=== PATIENT | female | born 1970 | race African-American/Black ===

== ENCOUNTER 2020-07-28 23:52 | Emergency (ER) | payer MEDICAID ==
[~2020-07-28] VITALS: Ht 165.1 cm; Wt 89.1 kg
[2020-07-29] MEDS ORDERED: KETOROLAC 60MG/2ML VIAL IM STA (00:38)
[2020-07-29] MEDS ORDERED: METOCLOPRAMIDE HCL 10MG/2ML VIAL IM STA (00:38)
[2020-07-29 02:04] VITALS: BP 125/76
[2020-07-29 02:08] LABS: CLARITY URINE CLEAR (CLEAR); COLOR URINE YELLOW (YELLOW); KETONES URINE NEGATIVE (NEGATIVE); LEUKOCYTE ESTERASE URINE NEGATIVE (NEGATIVE); NITRITE URINE NEGATIVE (NEGATIVE); OCCULT BLOOD URINE NEGATIVE (NEGATIVE); PH URINE 6.5 (4.5-8.0); PROTEIN URINE NEGATIVE (NEGATIVE); SPECIFIC GRAVITY URINE 1.026 (1.005-1.030)
[2020-07-29] MEDS ORDERED: NAPR-1074 PO (02:27)
[2020-07-29] MEDS ORDERED: ONDA4TAB5 PO (02:27)
== END 2020-07-29 03:25 | disposition home or self-care (01) ==
LOC: ER 23:52
DX: R51.9 Headache, unspecified (principal); Z88.0 Allergy status to penicillin
CPT/HCPCS: 81003; 96372; 99284; J1885; J2765

== ENCOUNTER 2021-01-15 15:08 | Emergency (ER) | payer MEDICAID, OTHER ==
[~2021-01-15] VITALS: Ht 165.1 cm; Wt 102.0 kg
[~2021-01-15 15:08] MED LIST: NAPR-1074 PO; ONDA4TAB5 PO
[2021-01-15 15:17] VITALS: BP 125/88
== END 2021-01-15 17:29 | disposition left against medical advice (07) ==
LOC: ER 15:08
DX: Z53.21 Procedure and treatment not carried out due to patient leaving prior to being seen by health care provider (principal)

== ENCOUNTER 2021-10-25 19:24 | Emergency (ER) | payer OTHER ==
[~2021-10-25] VITALS: Ht 165.1 cm; Wt 109.7 kg
[2021-10-25 19:34] VITALS: BP 125/77
== END 2021-10-25 21:35 | disposition left against medical advice (07) ==
LOC: ER 19:24
DX: Z53.21 Procedure and treatment not carried out due to patient leaving prior to being seen by health care provider (principal)
CPT/HCPCS: 93005

== ENCOUNTER 2023-12-15 22:09 | Emergency (ER) | payer MEDICAID ==
[~2023-12-15] VITALS: Ht 165.1 cm; Wt 91.0 kg
[2023-12-15 22:53] VITALS: O2SAT 100
[2023-12-16] MEDS: LIDOCAINE HCL 1% 20ML VIAL INFIL ONE (02:30)
[2023-12-16] MEDS ORDERED: DOXY100C5 MT (03:28)
[2023-12-16] MEDS: DOXYCYCLINE HYCLATE 100MG CAPSULE PO ONE (03:30)
[2023-12-16 04:38] VITALS: BP 128/82; PULSE 84; RESP 16; TEMP 98
== END 2023-12-16 04:15 | disposition home or self-care (01) ==
LOC: ER 22:09
DX: S91.311A Laceration without foreign body, right foot, initial encounter (principal); J45.909 Unspecified asthma, uncomplicated; Z88.0 Allergy status to penicillin; X58.XXXA Exposure to other specified factors, initial encounter; Y93.01 Activity, walking, marching and hiking; Y92.89 Other specified places as the place of occurrence of the external cause; Y99.8 Other external cause status
CPT/HCPCS: 73630; 12002; 99283; J3490; Z7610 ×3

== ENCOUNTER 2024-10-01 19:03 | Emergency (ER) | payer MEDICAID ==
[~2024-10-01] VITALS: Ht 165.1 cm; Wt 86.0 kg
[~2024-10-01 19:03] MED LIST changes: +BUSP10TA3 MT; +EFEX1 MT; +HYDR-4001 MT; -ONDA4TAB5 PO; +RISP1 MT; +TOPI15CA PO; +TRAZ-252 MT
[2024-10-01 19:05] VITALS: O2SAT 97
[2024-10-01 19:12] VITALS: BP 148/83; PULSE 98; RESP 16; TEMP 36.8; O2SAT 100
[2024-10-01] MEDS: BACITRACIN ZINC OINT UDPKT TOP ONE (19:45)
[2024-10-01] MEDS ORDERED: NEOM28.38 TP (20:18)
== END 2024-10-01 20:45 | disposition home or self-care (01) ==
LOC: ER 19:03
DX: T21.05XA Burn of unspecified degree of buttock, initial encounter (principal); F32.A Depression, unspecified; Z79.899 Other long term (current) drug therapy; Y92.89 Other specified places as the place of occurrence of the external cause; Z88.0 Allergy status to penicillin
CPT/HCPCS: 99282; Z7610